=== PATIENT | female | born 1985 | race Caucasian/White ===

== ENCOUNTER 2018-12-28 21:09 | Emergency (ER) | payer MEDICAID, OTHER ==
[~2018-12-28] VITALS: Ht 167.6 cm; Wt 68.0 kg
[~2018-12-28 21:09] MED LIST: ACET500C4 PO
[2018-12-28 21:32] VITALS: BP 119/75
[2018-12-28] MEDS ORDERED: KETOROLAC TROMETHAMINE INJ 30 MG/ML VIAL ONE (22:53)
[2018-12-28 22:59] LABS: APPEARANCE,URINE Slightly Cloudy (CLEAR); BILIRUBIN,URINE Negative (NEGATIVE); BLOOD, URINE Small Ery/uL (NEGATIVE); COLOR,URINE Yellow (YELLOW); KETONES,URINE Negative (NEGATIVE); LEUKOCYTE ESTERASE ,URINE Small (NEGATIVE); NITRITE, URINE Negative (NEGATIVE); PROTEIN,URINE Negative (NEGATIVE); UGLUCOSE Negative (NEGATIVE); UROBILINOGEN,URINE 0.2 EU/dL (0.2)
[2018-12-28] MEDS ORDERED: KETOROLAC TROMETHAMINE INJ 60 MG/2 ML VIAL IM ONE (23:00)
[2018-12-28 23:19] LABS: BACTERIA,URINE Few /HPF (None Seen); SQUAMOUS EPITHELIAL CELL,UR Few /HPF (None Seen)
== END 2018-12-28 23:41 | disposition home or self-care (01) ==
LOC: ER 21:16
DX: N39.0 Urinary tract infection, site not specified (principal); R51 Headache; Z59.0 Homelessness
CPT/HCPCS: 81001; 84703; 87077; 87086; 87186; 96372; 99283; J1885; 81000-TC

== ENCOUNTER 2019-02-01 21:49 | Emergency (ER) | payer MEDICAID ==
[~2019-02-01] VITALS: Ht 170.2 cm; Wt 71.7 kg
[2019-02-01 22:23] LABS: APPEARANCE,URINE Clear (CLEAR); BILIRUBIN,URINE Negative (NEGATIVE); BLOOD, URINE Negative Ery/uL (NEGATIVE); COLOR,URINE Yellow (YELLOW); KETONES,URINE Trace (NEGATIVE); LEUKOCYTE ESTERASE ,URINE Negative (NEGATIVE); NITRITE, URINE Negative (NEGATIVE); PROTEIN,URINE Negative (NEGATIVE); UGLUCOSE Negative (NEGATIVE); UROBILINOGEN,URINE 0.2 EU/dL (0.2)
[2019-02-01 23:20] LABS: BACTERIA,URINE Moderate /HPF (None Seen); RBC,URINE 0-2 /HPF (0-2); SQUAMOUS EPITHELIAL CELL,UR Moderate /HPF (None Seen)
--- NOTE | 2019-02-01 23:20 | NUR ---
BIBSELF C/O LEFT FLANK PAIN DENIES HEMATURIA. +NAUSEA.
[2019-02-01] MEDS ORDERED: ONDANSETRON 4 MG TAB.RAPDIS SL ONE (23:30)
[2019-02-01] MEDS ORDERED: oxyCODONE/APAP (5/325 MG) 1 UDTAB TABLET PO ONE (23:30)
[2019-02-01] MEDS ORDERED: ONDANSETRON 4 MG TAB.RAPDIS ONE (23:49)
[2019-02-01] MEDS ORDERED: oxyCODONE/APAP (5/325 MG) 1 UDTAB TABLET ONE (23:49)
[2019-02-02 00:21] LABS: BASOPHILS % (AUTO) 0.4 % (0.0-2.0); EOSINOPHILS % (AUTO) 0.9 % (0.0-6.0); HEMATOCRIT 36 % (33-45); HEMOGLOBIN 11.5 g/dL (11.5-14.8); LYMPHOCYTES # (AUTO) 2.3 /CMM (0.8-4.8); LYMPHOCYTES % (AUTO) 37.3 % (20.0-44.0); MEAN CORPUSCULAR HGB CONC 32 g/dl (31.0-36.0); MEAN CORPUSCULAR VOLUME 80 fL (82-100); MONOCYTES # (AUTO) 0.3 /CMM (0.1-1.30); MONOCYTES % (AUTO) 5.5 % (2.0-12.0); NEUTROPHILS # (AUTO) 3.5 /CMM (1.8-8.9); NEUTROPHILS % (AUTO) 55.9 % (43.0-81.0); PLATELET COUNT (AUTO) 244 /CMM (150-450); RED BLOOD CELL COUNT(AUTO) 4.45 MIL/uL (4.0-5.2); WHITE BLOOD COUNT (AUTO) 6.2 K/uL (4.3-11.0)
[2019-02-02 00:27] LABS: CALCIUM, SERUM 8.9 mg/dL (8.5-10.1); CREATININE 0.9 mg/dL (0.6-1.3); POTASSIUM 3.7 mmol/L (3.5-5.1)
[2019-02-02 00:33] LABS: ALBUMIN 3.7 g/dL (3.4-5.0); BILIRUBIN,DIRECT 0.1 mg/dL (0.0-0.2); BILIRUBIN,TOTAL 0.2 mg/dL (0.2-1.0); TOTAL PROTEIN, SERUM 7.5 g/dL (6.4-8.2)
--- NOTE | 2019-02-02 01:42 | NUR ---
Patient discharged to home in stable condition. Written and verbal after care instructions given. Patient verbalizes understanding of instruction.
[2019-02-02 01:43] VITALS: BP 114/75
== END 2019-02-02 01:43 | disposition home or self-care (01) ==
LOC: ER 21:54
DX: R10.2 Pelvic and perineal pain (principal); M54.5 Low back pain; R11.0 Nausea
CPT/HCPCS: 36415; 76856; 80048; 80076; 81001; 84703; 85025; 85730; 87086; 99284; Q0162; 81000-TC

== ENCOUNTER 2019-09-15 20:08 | Emergency (ER) | payer MEDICAID ==
[~2019-09-15] VITALS: Ht 167.6 cm; Wt 74.8 kg
[2019-09-15 20:08] VITALS: BP 115/77
--- NOTE | 2019-09-15 21:00 | NUR ---
SEEN AND EXAMINED BY
--- NOTE | 2019-09-15 21:18 | NUR ---
[employer] AT BEDSIDE FOR XRAY.
--- NOTE | 2019-09-15 22:14 | NUR ---
Patient discharged to home in stable condition. Written and verbal after care instructions given. Patient verbalizes understanding of instruction.
== END 2019-09-15 22:33 | disposition home or self-care (01) ==
LOC: ER 20:09
DX: J40 Bronchitis, not specified as acute or chronic (principal)
CPT/HCPCS: 71045-TC

== ENCOUNTER 2020-09-20 21:28 | Emergency (ER) | payer MEDICAID ==
[~2020-09-20] VITALS: Ht 162.6 cm; Wt 61.2 kg
--- NOTE | 2020-09-20 22:49 | NUR ---
per sent to lab
[2020-09-20 23:11] VITALS: BP 116/68
[2020-09-20] MEDS ORDERED: CEPH500C2 PO (23:17)
[2020-09-20] MEDS ORDERED: FLUC150T PO (23:17)
[2020-09-20] MEDS ORDERED: PHEN-705 PO (23:17)
[2020-09-20] MEDS ORDERED: CEFTRIAXONE 1 G VIAL ONE (23:29)
[2020-09-20] MEDS ORDERED: LIDOCAINE /MPF 1% VIAL 5 ML VIAL ONE (23:29)
[2020-09-20] MEDS ORDERED: CEFTRIAXONE 1 G VIAL IM ONE (23:30)
[2020-09-20] MEDS ORDERED: PHENAZOPYRIDINE HCL 200 MG TABLET PO ONE (23:30)
[2020-09-20] MEDS ORDERED: PHENAZOPYRIDINE HCL 200 MG TABLET ONE (23:30)
[2020-09-20 23:48] LABS: BILIRUBIN,URINE NEGATIVE (NEGATIVE); COLOR,URINE YELLOW (YELLOW); LEUKOCYTE ESTERASE ,URINE NEGATIVE (NEGATIVE); NITRITE, URINE NEGATIVE (NEGATIVE); PROTEIN,URINE NEGATIVE (NEGATIVE); UGLUCOSE NEGATIVE (NEGATIVE); UROBILINOGEN,URINE 0.2 EU/dL (0.2)
[2020-09-20 23:57] LABS: BACTERIA,URINE Moderate /HPF (None Seen); RBC,URINE 0-2 /HPF (0-2); SQUAMOUS EPITHELIAL CELL,UR Moderate /HPF (None Seen); WBC,URINE 0-2 /HPF (0-3)
[2020-09-20 23:58] LABS: MUCUS,URINE Moderate /LPF (None Seen)
== END 2020-09-21 00:10 | disposition home or self-care (01) ==
LOC: ER 21:32
DX: N12 Tubulo-interstitial nephritis, not specified as acute or chronic (principal); Z79.899 Other long term (current) drug therapy
CPT/HCPCS: 81001; 84703; 87086; 96372; 99283; J0696; J3490

== ENCOUNTER 2023-01-19 09:53 | Emergency (ER) | payer MEDICAID ==
[~2023-01-19] VITALS: Ht 167.6 cm; Wt 67.1 kg
[~2023-01-19 09:53] MED LIST changes: +CEPH500C2 PO; +FLUC150T PO; +PHEN-705 PO
[2023-01-19] MEDS ORDERED: CEPH500C2 PO (10:18)
[2023-01-19 10:31] LABS: APPEARANCE,URINE CLEAR (CLEAR); BILIRUBIN,URINE NEGATIVE (NEGATIVE); BLOOD, URINE 3+ Ery/uL (NEGATIVE); COLOR,URINE YELLOW (YELLOW); KETONES,URINE NEGATIVE (NEGATIVE); LEUKOCYTE ESTERASE ,URINE 2+ (NEGATIVE); NITRITE, URINE NEGATIVE (NEGATIVE); PH,URINE 6.5 (5.0-8.0); PROTEIN,URINE NEGATIVE (NEGATIVE); UGLUCOSE NEGATIVE (NEGATIVE); UROBILINOGEN,URINE 0.2 EU/dL (0.2)
[2023-01-19 10:50] LABS: ADD URINE CULTURE YES; BACTERIA,URINE Few /HPF (None Seen); SQUAMOUS EPITHELIAL CELL,UR Rare /HPF (None Seen)
[2023-01-19] MEDS ORDERED: FLUC150T PO (10:51)
[2023-01-19 10:56] VITALS: BP 101/63; TEMP 97.8; O2SAT 100
== END 2023-01-19 10:56 | disposition home or self-care (01) ==
LOC: ER 09:55
DX: N39.0 Urinary tract infection, site not specified (principal)
CPT/HCPCS: 81001; 87086-TC

== ENCOUNTER 2023-06-09 16:37 | Emergency (ER) | payer SELFPAY ==
[~2023-06-09] VITALS: Ht 167.6 cm; Wt 73.9 kg
[2023-06-09 18:13] LABS: APPEARANCE,URINE CLEAR (CLEAR); BILIRUBIN,URINE NEGATIVE (NEGATIVE); BLOOD, URINE 2+ Ery/uL (NEGATIVE); COLOR,URINE YELLOW (YELLOW); KETONES,URINE NEGATIVE (NEGATIVE); LEUKOCYTE ESTERASE ,URINE TRACE (NEGATIVE); NITRITE, URINE NEGATIVE (NEGATIVE); PROTEIN,URINE NEGATIVE (NEGATIVE); UGLUCOSE NEGATIVE (NEGATIVE); UROBILINOGEN,URINE 0.2 EU/dL (0.2)
[2023-06-09 18:23] LABS: EOSINOPHILS # (AUTO) 0.2 K/uL (0.0-0.7); HEMATOCRIT 34 % (33-45); HEMOGLOBIN 11.1 g/dL (11.5-14.8); LYMPHOCYTES # (AUTO) 0.8 K/uL (0.8-4.8); LYMPHOCYTES % (AUTO) 8.9 % (20.0-44.0); MEAN CORPUSCULAR HEMOGLOBIN 25 PG (26.0-33.0); MEAN CORPUSCULAR HGB CONC 33 g/dl (31.0-36.0); MEAN CORPUSCULAR VOLUME 77 fL (82-100); MONOCYTES # (AUTO) 0.5 K/uL (0.1-1.30); MONOCYTES % (AUTO) 5.5 % (2.0-12.0); NEUTROPHILS # (AUTO) 7.8 K/uL (1.8-8.9); NEUTROPHILS % (AUTO) 83.6 % (43.0-81.0); PLATELET COUNT (AUTO) 269 K/uL (150-450); RED BLOOD CELL COUNT(AUTO) 4.39 MIL/uL (4.0-5.2); WHITE BLOOD COUNT (AUTO) 9.4 K/uL (4.3-11.0)
[2023-06-09 18:49] LABS: INR 0.96 (0.91-1.10); PARTIAL THROMBOPLASTIN TIME 28.9 SEC (24.3-34.3); PROTHROMBIN TIME 10.2 SECS (9.2-11.1)
[2023-06-09 18:59] LABS: CALCIUM, SERUM 8.9 mg/dL (8.5-10.1); CREATININE 0.6 mg/dL (0.6-1.3); POTASSIUM 3.7 mmol/L (3.5-5.1)
[2023-06-09 19:34] LABS: ALBUMIN 3.1 g/dL (3.4-5.0); BILIRUBIN,DIRECT 0.1 mg/dL (0.0-0.2); BILIRUBIN,TOTAL 0.3 mg/dL (0.2-1.0); TOTAL PROTEIN, SERUM 7.4 g/dL (6.4-8.2)
[2023-06-09 20:03] LABS: ADD URINE CULTURE YES; BACTERIA,URINE 2+ /HPF (None Seen); CALCIUM OXALATE CRYSTALS,UR Rare /HPF (None Seen)
[2023-06-09] MEDS ORDERED: CEPH500C2 PO (20:16)
[2023-06-10 04:16] VITALS: BP 111/64; TEMP 98.1; O2SAT 100
== END 2023-06-10 04:17 | disposition home or self-care (01) ==
LOC: ER 16:45
DX: O23.41 Unspecified infection of urinary tract in pregnancy, first trimester (principal); N39.0 Urinary tract infection, site not specified; O46.91 Antepartum hemorrhage, unspecified, first trimester; Z3A.08 8 weeks gestation of pregnancy; R10.2 Pelvic and perineal pain; Z79.899 Other long term (current) drug therapy
CPT/HCPCS: 36415; 76805-TC; 80048-TC; 80076-TC; 81001; 84702-TC; 85025-TC; 85730-TC; 86850-TC; 87086-TC

== ENCOUNTER 2023-07-06 16:15 | Emergency (ER) | payer MEDICAID ==
[~2023-07-06] VITALS: Ht 167.6 cm; Wt 72.6 kg
[2023-07-06] MEDS ORDERED: ACETAMINOPHEN ES 500 MG TABLET ONE (16:56)
[2023-07-06] MEDS ORDERED: ONDANSETRON 4 MG TAB.RAPDIS ONE (16:56)
[2023-07-06] MEDS ORDERED: ACETAMINOPHEN ES 500 MG TABLET PO ONE (17:00)
[2023-07-06] MEDS ORDERED: ONDANSETRON 4 MG TAB.RAPDIS SL ONE (17:00)
[2023-07-06] MEDS ORDERED: ONDA4TAB5 PO (17:01)
[2023-07-06 17:28] VITALS: BP 108/60; TEMP 98.2; O2SAT 98
== END 2023-07-06 17:29 | disposition home or self-care (01) ==
LOC: ER 16:17
DX: O26.899 Other specified pregnancy related conditions, unspecified trimester (principal); R51.9 Headache, unspecified; Z3A.00 Weeks of gestation of pregnancy not specified
CPT/HCPCS: 99283; Q0162